=== PATIENT | male | born 1990 | race Caucasian/White ===

== ENCOUNTER 2024-03-23 14:56 | Emergency (ER) | payer SELFPAY ==
[2024-03-23 15:26] VITALS: BP 113/79
--- NOTE | 2024-03-23 15:26 | ED.GENMED ---
ED Provider Triage
<GEOVANNI Limon - Last Filed: 03/23/24 15:29>
-
Patient seen by provider in Triage?: Seen in Triage
Attestation: A medical screening examination has been initiated by a qualified medical provider. Based on the assessment performed at this time, it has been determined that an emergent medical condition may exist and the patient has been informed
that further medical evaluation and possible additional diagnostic testing may be needed.
HPI: 33 yr old male with history of spherocytosis stared with fevers as high as 104 since yesterday . Pt cough congestion for past 2 wks, fever started yesterday w/ diarrhea. Since lst night he has had diarrhea 5- 6 times. PCP manages
spherocytosis. hx of anemia due to this but no other issues.
GENERAL: Alert , in no apparent distress
EYE: No visual abnormalities.
NECK: Trachea midline
ENT: No visible abnormalities.
LUNGS: No acute respiratory distress
NEUROLOGICAL: Alert and oriented
SKIN: Skin intact. No visible changes.
MUSCULOSKELETAL: Moving extremities normally
PSYCH: Normal and appropriate interaction.
This is a medical evaluation conducted in person to initiate diagnostic evaluation and provide initial therapeutics. Please see further documentation by the treating clinician.
History of Present Illness
<GEOVANNI Limon - Last Filed: 03/23/24 15:29>
General
Chief Complaint: Fever
Time Seen by Provider: 03/23/24 19:52
<Sparkle Tanner DO - Last Filed: 03/24/24 03:29>
History of Present Illness
History of Present Illness:
33-year-old male with history of spherocytosis presenting to the emergency department for high fevers at home. Patient reports symptom started yesterday with associated cough, body, diarrhea. Does note sick contacts at home. Took a COVID test
which was negative. He has been taking OTC medications, took Tamiflu prior to arrival. Denies any associated abdominal pain. Denies any significant dyspnea or chest pain. Denies additional acute medical complaints
Past History
<GEOVANNI Limon - Last Filed: 03/23/24 15:29>
Past History
ED Past Medical History: Other (COVID-19)
ED Past Surgical History: None
Social History
Tobacco: Non-smoker
Phy Exam
<Sparkle Tanner DO - Last Filed: 03/24/24 03:29>
Physical Exam
Physical Exam:
General: Well-appearing, no clinical signs of dehydration, nontoxic and in no acute distress
HEENT: protecting airway
Neck: appears supple
CV: Normal heart rate, regular rhythm
Resp: No accessory muscle use, no increased work of breathing, lungs clear to auscultation bilaterally
Abd: Soft and non-distended, no tenderness to palpation
Extremities: No deformities, no swelling
Neuro: alert, no focal neurologic deficit
: deferred
Rectal: deferred
Psych: Normal affect
Skin: Intact
Course
<GEOVANNI Limon - Last Filed: 03/23/24 15:29>
Orders/Labs/Results
Orders:
Orders
03/23/24 15:36
COVID-19 Antigen Urgent
Source: Nasal Swab
Complete Blood Count/With Diff Urgent
Comprehensive Metabolic Panel Urgent
Influenza A+B Rapid Molecular Urgent
[facility] Source: Nasal Swab
Specimen Description:
Abnormal Lab Results
03/23/24
15:36
RBC 3.18 L 10^6/uL
(4.70-6.10)
Hgb 9.7 L g/dL
(13.0-18.0)
Hct 26.3 L %
(39.0-52.0)
RDW 16.4 H %
(11.5-14.5)
Abs Immat Gran (auto) 0.3 H 10^3/uL
(0-0.05)
Absolute Neuts (auto) 7.0 H 10^3/uL
(1.4-6.5)
Absolute Monos (auto) 0.9 H 10^3/uL
(0.1-0.6)
Immature Gran % 2.6 H %
(0-0.5)
Lymphocytes % 15.5 L %
(20.5-51.1)
Monocytes % 9.4 H %
(1.7-9.3)
Glucose 104 H mg/dl
(70-99)
Total Bilirubin 3.0 H mg/dl
(0.2-1.3)
ALT 66 H U/L
(0-50)
03/23/24 15:36
03/23/24 15:36
Vital Signs
Initial and Last Documented VS:
Initial Vital Signs
Temp Pulse Resp BP Pulse Ox
98.0 F 97 18 113/79 99
03/23/24 15:26 03/23/24 15:26 03/23/24 15:26 03/23/24 15:26 03/23/24 15:26
Last Documented Vital Signs
Temp Pulse Resp BP Pulse Ox
98.0 F 97 18 113/79 99
03/23/24 15:26 03/23/24 15:26 03/23/24 15:26 03/23/24 15:26 03/23/24 15:26
<Sparkle Tanner, DO - Last Filed: 03/24/24 03:29>
Orders/Labs/Results
Orders:
Orders
03/23/24 15:36
COVID-19 Antigen Urgent
Source: Nasal Swab
Complete Blood Count/With Diff Urgent
Comprehensive Metabolic Panel Urgent
Influenza A+B Rapid Molecular Urgent
[place] Source: Nasal Swab
Specimen Description:
Abnormal Lab Results
03/23/24
15:36
RBC 3.18 L 10^6/uL
(4.70-6.10)
Hgb 9.7 L g/dL
(13.0-18.0)
Hct 26.3 L %
(39.0-52.0)
RDW 16.4 H %
(11.5-14.5)
Abs Immat Gran (auto) 0.3 H 10^3/uL
(0-0.05)
Absolute Neuts (auto) 7.0 H 10^3/uL
(1.4-6.5)
Absolute Monos (auto) 0.9 H 10^3/uL
(0.1-0.6)
Immature Gran % 2.6 H %
(0-0.5)
Lymphocytes % 15.5 L %
(20.5-51.1)
Monocytes % 9.4 H %
(1.7-9.3)
Glucose 104 H mg/dl
(70-99)
Total Bilirubin 3.0 H mg/dl
(0.2-1.3)
ALT 66 H U/L
(0-50)
03/23/24 15:36
03/23/24 15:36
Vital Signs
Initial and Last Documented VS:
Initial Vital Signs
Temp Pulse Resp BP Pulse Ox
98.0 F 97 18 113/79 99
03/23/24 15:26 03/23/24 15:26 03/23/24 15:26 03/23/24 15:26 03/23/24 15:26
Last Documented Vital Signs
Temp Pulse Resp BP Pulse Ox
98.0 F 97 18 113/79 99
03/23/24 15:26 03/23/24 15:26 03/23/24 15:26 03/23/24 15:26 03/23/24 15:26
<Sparkle Tanner DO - Last Filed: 03/24/24 03:29>
MDM/Problems Addressed
MDM/Problems Addressed:
33-year-old male with history of serositis presenting for fever, body aches, cough. Vital signs are normal.
On exam patient is well-appearing, nontoxic. Patient seen by provider in triage, had laboratory analysis completed as well as viral swabs. Patient is positive for influenza, consistent with symptoms. Patient was concerned about hemolytic anemia
given family history of serial cytosis, however slightly anemic without any indication for blood transfusion. Patient also hemodynamically stable. At this time suspected uncomplicated influenza. Patient symptoms started yesterday, is a candidate
for Tamiflu and would like to proceed with prescription. Will provide. Otherwise feel stable for discharge with continued outpatient supportive therapy. Return precautions discussed and patient verbalized understanding
<Sparkle Tanner DO - Last Filed: 03/24/24 03:29>
*Critical Care Note
Total Time (30-74mins, 75-104mins- exclusive of procedures): Not Applicable
ED Attending Note
<GEOVANNI Limon - Last Filed: 03/23/24 15:29>
-
Portions of this chart may have been created with voice recognition software.� Occasional wrong word or��sound alike� substitutions may have occurred due to the inherent limitations of voice recognition software.
Discharge Plan
Departure
Patient Disposition: Home (Routine Discharge)
Patient with high blood pressure during this ER visit?: No
Discharge Problem:
Influenza A
Instructions: Viral Syndrome (DC), Flu in adults - ED discharge instructions
Prescriptions:
New
oseltamivir [Tamiflu] 75 mg capsule
75 mg PO Q12H 5 Days Qty: 10 0RF
No Action
clindamycin HCl [Cleocin HCl] 300 MG capsule
300 mg PO TID Qty: 15 0RF
clindamycin HCl 150 MG capsule
150 mg PO TID Qty: 15 0RF
prednisone 20 MG tablet
60 mg PO Daily Qty: 18 0RF
Rx Instructions:
60 mg daily x 6 days. Please dispense sufficient quantity.
Referrals:
NONE,* [Active] -
Activity Restrictions/Additional Instructions:
You were seen in the emergency department for fever and cough
You were found to have influenza. You were prescribed Tamiflu. Please continue to drink fluids and take Tylenol or Motrin as needed for fever
Please follow-up closely with your primary care physician.
Return to the emergency department for any worsening of your symptoms, or any development of chest pain, difficulty breathing, abdominal pain with persistent vomiting and inability to tolerate food or liquid by mouth (concern for dehydration),
weakness, headache or confusion, fever greater than 100.4, or any additional symptoms that are concerning to you.
Thank you for choosing [facility].
Interventions
Interventions:
*Risk Screen - Suicide Last Done: 03/23/24 15:26
*General Assessment Last Done: 03/23/24 15:26
*Neglect/Abuse Screening Last Done: 03/23/24 15:26
ED- Fall Risk Assessment Last Done: 03/23/24 20:43
*Nursing Disposition Last Done: 03/23/24 20:45
ED- Neurological Assessment Last Done: 03/23/24 20:43
ED-Skin Assessment Last Done: 03/23/24 20:43
Discharge Date and Time
Discharge Date/Time: 03/23/24 20:45
Print Language: FAROESE
[2024-03-23 15:48] LABS: % Basophils 0.4 % (0-2); % Immature Granulocytes 2.6 % (0-0.5); % Lymphocytes 15.5 % (20.5-51.1); % Monocytes 9.4 % (1.7-9.3); % Neutrophils 72.1 % (42.2-75.2); Absolute Immature Granulocytes 0.3 10^3/uL (0-0.05); Absolute Lymphocytes 1.5 10^3/uL (1.2-3.4); Absolute Monocytes 0.9 10^3/uL (0.1-0.6); Hematocrit 26.3 % (39.0-52.0); Hemoglobin 9.7 g/dL (13.0-18.0); Mean Corp Hgb Conc. 36.9 g/dL (33.0-37.0); Mean Corpuscular Hgb 30.5 pg (27.0-31.0); Mean Corpuscular Volume 82.7 fL (80.0-94.0); Mean Platelet Volume 9.8 fL (7.4-10.4); Nucleated Red Blood Cells % 0.3 % (-); Platelet Count 187 10^3/uL (130-400); Red Blood Cell Count 3.18 10^6/uL (4.70-6.10); Red Cell Dist. Width 16.4 % (11.5-14.5); White Blood Cell Count 9.7 10^3/uL (4.8-10.8)
[2024-03-23 16:04] LABS: ALT (SGPT) 66 U/L (0-50); AST (SGOT) 59 U/L (17-59); Albumin 4.8 g/dl (3.5-5.0); Alkaline Phosphatase 54 U/L (38-126); Blood Urea Nitrogen 17 mg/dl (9-20); Carbon Dioxide 28 mmol/L (22-30); Chloride 99 mmol/L (98-107); Glucose 104 mg/dl (70-99); Potassium 4.4 mmol/L (3.5-5.1); Sodium 136 mmol/L (135-145); eGFR > 60.00
[2024-03-23 16:35] LABS: COVID-19 Antigen Negative (Negative)
== END 2024-03-23 20:45 | disposition home or self-care (01) ==
LOC: EMR 14:56
PROVIDERS: Nurse Practitioner; EMERGENCY PHYSICIAN Student in an Organized Health Care Education/Training Program; FAMILY PHYSICIAN Physician Assistant Medical
DX: J10.1 Influenza due to other identified influenza virus with other respiratory manifestations (principal); Z86.16 Personal history of COVID-19
CPT/HCPCS: 99283; 80053; 85025; 87502; 87811